=== PATIENT | male | born 1960 | race African-American/Black ===

== ENCOUNTER 2024-03-03 12:32 | Inpatient (IN) | payer SELFPAY ==
[~2024-03-03] VITALS: Ht 160 cm; Wt 62.4 kg
[2024-03-03] VITALS (33 sets, daily range): BP systolic 134–191; BP diastolic 95–137
[2024-03-03 13:10] LABS: BASO% 0.6 % (0-3); EOS% 0.7 % (0-8); HEMATOCRIT 51.3 % (39.0-50.0); HEMOGLOBIN 16.9 g/dl (14.0-18.0); IMMATURE GRANULOCYTES 0.4 % (0.0-5.0); LYMPH% 33.3 % (15-41); MEAN CELL VOLUME 94.5 fL CALC (80.0-100.0); MEAN CORPUSCULAR HGB 31.1 pG CALC (26.0-32.0); MEAN CORPUSCULAR HGB CONC 32.9 g/dL CAL (32.0-36.0); MONO% 13.2 % (2-13); NEUT# 4.32 thou/uL (1.82-7.42); NEUT% 51.8 % (42-76); RED BLOOD COUNT 5.43 mill/uL (4.70-6.10); RED CELL DISTRI WIDTH 13.9 % (11.5-15.5)
[2024-03-03 13:18] LABS: ALBUMIN 4.3 g/dL (3.2-5.0); BILIRUBIN, TOTAL 2.1 mg/dL (0.2-1.3); CREATININE 1.1 mg/dL (0.7-1.3); POTASSIUM 4.2 mmol/l (3.5-5.1); TOTAL PROTEIN 8.5 g/dL (6.3-8.2)
[2024-03-03 13:22] LABS: INTERNATIONAL NORMALIZED RATIO 1.4 RATIO (0.7-1.3)
[2024-03-03 13:23] LABS: PROTHROMBIN TIME 13.5 SECONDS (9.0-12.5)
[2024-03-03] MEDS ORDERED: LABETALOL HCL 20 MG/ 4 ML CARTRG IV ONE (14:10)
[2024-03-03] MEDS ORDERED: FUROSEMIDE 40 MG/4 ML SDV IV ONE ×2 (14:10→16:05)
[2024-03-03] MEDS ORDERED: LOSARTAN Potassium 25 MG/TAB PO SCH (14:30)
[2024-03-03] MEDS ORDERED: ASPIRIN EC 81 MG/TAB PO SCH (14:30)
[2024-03-03] MEDS ORDERED: MAGNESIUM HYDROXIDE 30 ML UDC PO PRN (16:10)
[2024-03-03] MEDS ORDERED: ACETAMINOPHEN 325 MG/TAB PO PRN (16:10)
[2024-03-03] MEDS ORDERED: hydrALAZINE HCL 20 MG/ML VIAL(1 ML) IV PRN (19:35)
[2024-03-03] MEDS ORDERED: ENOXAPARIN SODIUM 40 MG/0.4 ML SYR SC SCH (21:00)
[2024-03-03] MEDS ORDERED: FUROSEMIDE 40 MG/4 ML SDV IV SCH (21:00)
[2024-03-03] MEDS ORDERED: LABETALOL HCL 20 MG/ 4 ML CARTRG IV PRN (23:40)
[2024-03-04] VITALS (7 sets, daily range): BP systolic 147–194; BP diastolic 82–124
[2024-03-04 06:36] LABS: BASO% 0.8 % (0-3); EOS% 1.1 % (0-8); HEMATOCRIT 50.9 % (39.0-50.0); HEMOGLOBIN 16.4 g/dl (14.0-18.0); IMMATURE GRANULOCYTES 0.3 % (0.0-5.0); LYMPH% 31.9 % (15-41); MEAN CORPUSCULAR HGB 30.9 pG CALC (26.0-32.0); MEAN CORPUSCULAR HGB CONC 32.2 g/dL CAL (32.0-36.0); MONO% 12.5 % (2-13); NEUT# 3.45 thou/uL (1.82-7.42); NEUT% 53.4 % (42-76); RED BLOOD COUNT 5.3 mill/uL (4.70-6.10); RED CELL DISTRI WIDTH 14.2 % (11.5-15.5)
[2024-03-04 06:53] LABS: INTERNATIONAL NORMALIZED RATIO 1.6 RATIO (0.7-1.3)
[2024-03-04 06:54] LABS: ALBUMIN 3.8 g/dL (3.2-5.0); BILIRUBIN, TOTAL 2.1 mg/dL (0.2-1.3); MAGNESIUM 1.3 mg/dL (1.6-2.3); POTASSIUM 3.6 mmol/l (3.5-5.1); TOTAL PROTEIN 7.4 g/dL (6.3-8.2)
[2024-03-04 07:28] LABS: PROTHROMBIN TIME 15.2 SECONDS (9.0-12.5)
[2024-03-04] MEDS ORDERED: MAGNESIUM SULFATE HEPTAHYDRATE 50 ML IV SCH (10:00)
[2024-03-04] MEDS ORDERED: LOSARTAN Potassium 25 MG/TAB PO SCH (11:30)
[2024-03-04 12:24] LABS: URINE BILIRUBIN - DIPSTICK Negative (NEGATIVE); URINE BLOOD DIPSTICK Trace-intact (NEGATIVE); URINE GLUCOSE - DIPSTICK Negative (NEGATIVE); URINE KETONE Negative (NEGATIVE); URINE LEUK ESTERASE Negative (NEGATIVE); URINE NITRITE - DIPSTICK Negative (Negative); URINE PH 6.5 (4.5-8.0); URINE PROTEIN - DIPSTICK 30 mg/dL (NEG-TRACE); URINE SPECIFIC GRAVITY 1.015
[2024-03-04 12:44] LABS: URINE COLOR Yellow
[2024-03-04 12:46] LABS: URINE EPITHELIAL CELLS FEW EPI/hpf (0-FEW); URINE MUCUS MODERATE hpf (NONE-FEW); URINE RBC 0-2 RBC/hpf (0-5)
[2024-03-05] VITALS (8 sets, daily range): BP systolic 120–191; BP diastolic 69–119
[2024-03-05 05:38] LABS: HEMATOCRIT 53.1 % (39.0-50.0); HEMOGLOBIN 17.7 g/dl (14.0-18.0); MEAN CELL VOLUME 94.5 fL CALC (80.0-100.0); MEAN CORPUSCULAR HGB 31.5 pG CALC (26.0-32.0); MEAN CORPUSCULAR HGB CONC 33.3 g/dL CAL (32.0-36.0); RED BLOOD COUNT 5.62 mill/uL (4.70-6.10); RED CELL DISTRI WIDTH 13.9 % (11.5-15.5)
[2024-03-05 05:52] LABS: ALBUMIN 3.8 g/dL (3.2-5.0); TOTAL PROTEIN 7.5 g/dL (6.3-8.2)
[2024-03-05 07:14] LABS: MAGNESIUM 1.4 mg/dL (1.6-2.3)
[2024-03-05] MEDS ORDERED: LOSARTAN Potassium 50 MG/TAB PO SCH (09:00)
[2024-03-05] MEDS ORDERED: CARVEDILOL 6.25 MG/TAB PO SCH (10:00)
[2024-03-05] MEDS ORDERED: MAGNESIUM SULFATE HEPTAHYDRATE 50 ML IV SCH (10:00)
[2024-03-05] MEDS ORDERED: ATORVASTATIN CALCIUM 10 MG/TAB PO SCH (21:00)
[2024-03-06 04:39] VITALS: BP 133/82
[2024-03-06 05:20] LABS: HEMATOCRIT 54.3 % (39.0-50.0); HEMOGLOBIN 18.4 g/dl (14.0-18.0); MEAN CELL VOLUME 94.4 fL CALC (80.0-100.0); MEAN CORPUSCULAR HGB CONC 33.9 g/dL CAL (32.0-36.0); RED BLOOD COUNT 5.75 mill/uL (4.70-6.10); RED CELL DISTRI WIDTH 13.8 % (11.5-15.5)
[2024-03-06 05:37] LABS: ALBUMIN 3.9 g/dL (3.2-5.0); BILIRUBIN, TOTAL 1.7 mg/dL (0.2-1.3); CREATININE 1.1 mg/dL (0.7-1.3); MAGNESIUM 1.7 mg/dL (1.6-2.3); POTASSIUM 3.9 mmol/l (3.5-5.1); TOTAL PROTEIN 7.7 g/dL (6.3-8.2)
[2024-03-06 07:10] VITALS: BP 140/91
[2024-03-06 10:43] VITALS: BP 118/74
[2024-03-06 15:37] VITALS: BP 122/82
[2024-03-06 18:56] VITALS: BP 131/80
[2024-03-06 23:43] VITALS: BP 112/54
[2024-03-07 05:12] VITALS: BP 124/61
[2024-03-07 05:29] LABS: BASO% 0.7 % (0-3); EOS% 2.7 % (0-8); HEMATOCRIT 49.5 % (39.0-50.0); HEMOGLOBIN 16.8 g/dl (14.0-18.0); IMMATURE GRANULOCYTES 0.7 % (0.0-5.0); LYMPH% 35.6 % (15-41); MEAN CELL VOLUME 94.5 fL CALC (80.0-100.0); MEAN CORPUSCULAR HGB 32.1 pG CALC (26.0-32.0); MEAN CORPUSCULAR HGB CONC 33.9 g/dL CAL (32.0-36.0); NEUT# 2.46 thou/uL (1.82-7.42); NEUT% 44.3 % (42-76); RED BLOOD COUNT 5.24 mill/uL (4.70-6.10); RED CELL DISTRI WIDTH 13.4 % (11.5-15.5)
[2024-03-07 05:38] LABS: ALBUMIN 3.4 g/dL (3.2-5.0); BILIRUBIN, TOTAL 1.2 mg/dL (0.2-1.3); CREATININE 1.1 mg/dL (0.7-1.3); MAGNESIUM 1.8 mg/dL (1.6-2.3); POTASSIUM 3.4 mmol/l (3.5-5.1); TOTAL PROTEIN 6.6 g/dL (6.3-8.2)
[2024-03-07 07:30] VITALS: BP 133/91
[2024-03-07] MEDS ORDERED: SPIRONOLACTONE 25 MG/TAB PO SCH (09:00)
[2024-03-07] MEDS ORDERED: FUROSEMIDE 40 MG/TAB PO SCH (09:00)
[2024-03-07 10:42] VITALS: BP 107/59
[2024-03-07] MEDS ORDERED: ATORVASTATIN CA10 MG PO (11:53)
[2024-03-07] MEDS ORDERED: CARVEDILOL6.25 MG PO (11:54)
[2024-03-07] MEDS ORDERED: LOSARTAN POTASS50 MG PO (11:54)
[2024-03-07] MEDS ORDERED: ALDACTONE25 MG PO (11:54)
[2024-03-07] MEDS ORDERED: ASPIRIN 81 LOW81 MG PO (11:55)
[2024-03-07] MEDS ORDERED: LASIX 40 MG TAB40 MG PO ×2 (11:59→12:48)
== END 2024-03-07 14:41 | disposition home or self-care (01) | DRG 280 ==
LOC: ED 12:32 → ED-I 12:57 → ED 16:09 → MS2 16:10
PROVIDERS: Nurse Practitioner; Nurse Practitioner Family; Student in an Organized Health Care Education/Training Program; ADMIT Internal Medicine; ATTEND Internal Medicine
DX: I11.0 Hypertensive heart disease with heart failure (principal); I50.21 Acute systolic (congestive) heart failure; I21.A1 Myocardial infarction type 2; I16.1 Hypertensive emergency; I44.0 Atrioventricular block, first degree; Z20.822 Contact with and (suspected) exposure to COVID-19
CPT/HCPCS: J1650; J3475; Q9967